=== PATIENT | female | born 1995 | race Two or more races ===

== ENCOUNTER 2017-07-06 21:34 | Emergency (ER) | payer MEDICAID, OTHER ==
[~2017-07-06] VITALS: Ht 170.2 cm; Wt 74.4 kg
[~2017-07-06 21:34] MED LIST: AZITHROMYCIN250 MG PO; IBUPROFEN600 MG PO; PREDNISONE20 MG PO
[2017-07-06 22:23] LABS: APPEARANCE,URINE CLEAR; BILIRUBIN, URINE NEGATIVE (NEGATIVE); GLUCOSE, URINE (UA) NEGATIVE (NEGATIVE); KETONES,URINE 1+ (NEGATIVE); LEUKOCYTE ESTERASE ,URINE 3+ (NEGATIVE); NITRITE,URINE NEGATIVE (NEGATIVE); PH,URINE 5 (4.5-8.0); PROTEIN,URINE NEGATIVE (NEGATIVE); UROBILINOGEN,URINE 1 MG/DL (0.0-1.0)
[2017-07-06 22:24] LABS: COLOR,URINE YELLOW
[2017-07-06] MEDS ORDERED: NITROFURANTOIN100 M2 ORAL (22:44)
--- NOTE | 2017-07-06 22:52 | Emergency Room Report ---
History of Present Illness General Chief Complaint: Abdominal Pain Source: Patient Present Illness HPI 22YOF with episode of vaginal bleeding 3 days ago after "rough sex." No additional episodes since. Currently DENIES abd/pelvic pain, contrary to preschool teacher's assistant note No nausea/vomiting/diarrhea, fever/chills Feels well otherwise also endorsing dysuria, polyuria for 2-3 days without flank pain Sexual relations with one partner. No history of STDs. Allergies: Coded Allergies: PENICILLINS (Verified Allergy, Intermediate, PT GETS HIVES ALL OVER BODY, MOTHER IS ALSO ALLERGIC, 06/06/11) Patient History Past Medical History: none Past Surgical History: none Pertinent Family History: none Social History: Denies: smoking, alcohol use, drug use Last Menstrual Period: last month Now: No : 1 Immunizations: UTD Reviewed Nursing Documentation: PMH: Agreed, PSxH: Agreed Nursing Documentation-PMH Past Medical History: No Stated History Review of Systems All Other Systems: negative except mentioned in HPI Physical Exam Vital Signs Date Time Temp Pulse Resp B/P (MAP) Pulse Ox O2 Delivery O2 Flow Rate FiO2 07/06/17 21:46 98.8 94 18 126/82 100 Room Air Medical Decision Making Diagnostic Impression: Primary Impression: Dysuria Additional Impression: Vaginal bleeding ER Course VSS. Afebrile Vaginal bleeding after intercourse likely d/t rough sex. Since resolved UA infected Rx Macrobid provided DC home Last Vital Signs Date Time Temp Pulse Resp B/P (MAP) Pulse Ox O2 Delivery O2 Flow Rate FiO2 07/06/17 21:46 98.8 94 18 126/82 100 Room Air Status: improved Disposition: HOME, SELF-CARE Condition: Improved Scripts Nitrofurantoin Monohyd/M-Cryst* (MACROBID 100 MG*) 100 Mg Capsule 100 MG ORAL EVERY 12 HOURS for 7 Days, #14 CAP Prov: EVELIA SUAREZ M.D. 07/06/17 Patient Instructions: Dysuria EVELIA SUAREZ M.D. Jul 06, 2017 22:52
[2017-07-06 23:06] VITALS: BP 126/82
== END 2017-07-06 23:07 | disposition home or self-care (01) ==
LOC: EMR 21:54
DX: R30.0 Dysuria (principal); N93.9 Abnormal uterine and vaginal bleeding, unspecified; Z88.0 Allergy status to penicillin
CPT/HCPCS: 81003; 81025; 87086; 99283

== ENCOUNTER 2019-06-11 21:52 | Emergency (ER) | payer OTHER ==
[~2019-06-11] VITALS: Ht 170.2 cm; Wt 86.2 kg
[~2019-06-11 21:52] MED LIST changes: +NITROFURANTOIN100 M2 ORAL
--- NOTE | 2019-06-11 22:22 | NUR ---
ED Nurse Note: Patient accompanied by mother. Sustained burn to the inner right thigh three days ago - using hot water. Today noted a redness developing at the burn site. No blister wound appears as if the blister has burst. Wound looks dry.
[2019-06-11] MEDS ORDERED: SILVADENE20 GM TP (22:29)
[2019-06-11] MEDS ORDERED: HYDROCODON-ACE1 EA15 ORAL (22:29)
[2019-06-11] MEDS ORDERED: IBUPROFEN600 MG ORAL (22:29)
--- NOTE | 2019-06-11 22:29 | Emergency Room Report ---
History of Present Illness General Chief Complaint: Burn/Smoke Inhalation Source: Patient Present Illness HPI Is a 24-year-old female with no past medical history. She presents with chief complaint of burn to the right thigh. She said that she dropped some hot water on it 4 days ago. It blister up and now the blister broke. Still very painful. No fever chills but no nausea no vomiting. Denies any abuse. Pain is 8 out of 10. Worse with exposure to air. Allergies: Coded Allergies: PENICILLINS (Verified Allergy, Intermediate, PT GETS HIVES ALL OVER BODY, MOTHER IS ALSO ALLERGIC, 06/06/11) Patient History Past Medical History: see triage record, old chart reviewed Past Surgical History: none Pertinent Family History: none Social History: Denies: smoking Last Menstrual Period: 06/02/19 Now: No : 2 Para: 2 Immunizations: other Reviewed Nursing Documentation: PMH: Agreed; PSxH: Agreed Nursing Documentation-PMH Past Medical History: No Stated History Review of Systems Eye: Denies: eye pain, blurred vision ENT: Denies: ear pain, nose congestion, throat swelling Respiratory: Denies: cough, shortness of breath Cardiovascular: Denies: chest pain, palpitations Gastrointestinal: Denies: abdominal pain, diarrhea, nausea, vomiting Musculoskeletal: Denies: back pain, joint pain Skin: Denies: rash Neurological: Denies: headache, numbness Endocrine: Denies: increased thirst, increased urine Hematologic/Lymphatic: Denies: easy bruising All Other Systems: negative except mentioned in HPI Physical Exam Vital Signs Date Time Temp Pulse Resp B/P (MAP) Pulse Ox O2 Delivery O2 Flow Rate FiO2 06/11/19 22:07 98.2 102 17 97 Room Air Vitals normal Sp02 EP Interpretation: reviewed, normal General Appearance: well appearing, no apparent distress, alert Head: normocephalic, atraumatic Eyes: bilateral eye PERRL, bilateral eye EOMI ENT: hearing grossly normal, normal pharynx Neck: full range of motion, supple, no meningismus Respiratory: chest non-tender, lungs clear, normal breath sounds Cardiovascular #1: regular rate, rhythm, no murmur Gastrointestinal: normal bowel sounds, non tender, no mass, no organomegaly, no bruit, non-distended Musculoskeletal: back normal, gait/station normal, normal range of motion, other - Right upper inner thigh: She has a linear 2 x 6 cm burn with partial to full-thickness burn. She has some surrounding 4 to 5 cm erythema. Psychiatric: mood/affect normal Medical Decision Making Diagnostic Impression: Primary Impression: Second degree burn of thigh Qualified Codes: T24.211A - Burn of second degree of right thigh, initial encounter ER Course She with a second-degree burn to her thigh. She claimed that this is from hot water from a cup. To me it looks more like a burn from her curling iron. No evidence of any infection. Burn dressing done. Will discharge home. Last Vital Signs Date Time Temp Pulse Resp B/P (MAP) Pulse Ox O2 Delivery O2 Flow Rate FiO2 06/11/19 22:07 98.2 102 17 97 Room Air Status: improved Disposition: HOME, SELF-CARE Condition: Stable Scripts Silver Sulfadiazine (SILVADENE) 20 Gm Cream..g. 20 GM TP BID, #50 GM Prov: Sushil Campbell MD 06/11/19 Ibuprofen* (MOTRIN*) 600 Mg Tablet 600 MG ORAL THREE TIMES A DAY, #30 TAB 0 Refills Prov: Sushil Campbell MD 06/11/19 Hydrocodone/Acetaminophen 5-325* (HYDROCODONE/ACETAMINOPHEN 5-325*) 1 Each Tablet 1 TAB ORAL Q6H PRN for For Pain, #15 TAB 0 Refills Prov: Sushil Campbell MD 06/11/19 Referrals: NON PHYSICIAN (PCP) Patient Instructions: Second-Degree Burn Additional Instructions: Wound clean. Change dressing twice a day. Follow-up with in 7 days for recheck. Return if worse. Sushil Campbell MD Jun 11, 2019 22:29
[2019-06-11] MEDS ORDERED: HYDROcodone/Acetamin 5/325 tab ORAL ONE (22:30)
--- NOTE | 2019-06-11 22:35 | NUR ---
ED Nurse Note: Wound dressed with ointment as prescribed and covered with dressing. Wound dressing performed by EMT. Wound care advice provided.
--- NOTE | 2019-06-11 22:43 | NUR ---
ER DISCHARGE NOTE: Patient is cleared to be discharged per ERMD, pt is aox4, on room air, with stable vital signs. pt was given dc and prescription instructions, pt was able to verbalize understanding, pt id band removed without complications. pt is able to ambulate with steady gait. pt took all belongings. Patient accompanied home by mother.
[2019-06-11 22:47] VITALS: BP 127/74
[2019-06-11 22:50] VITALS: BP 127/74
== END 2019-06-11 22:54 | disposition home or self-care (01) ==
LOC: EMR 22:17
DX: T24.211A Burn of second degree of right thigh, initial encounter (principal); T31.0 Burns involving less than 10% of body surface; Z88.0 Allergy status to penicillin; X11.8XXA Contact with other hot tap-water, initial encounter; Y92.9 Unspecified place or not applicable
CPT/HCPCS: 99282

== ENCOUNTER 2019-10-04 19:30 | Emergency (ER) | payer OTHER ==
[~2019-10-04] VITALS: Ht 170.2 cm; Wt 90.7 kg
[~2019-10-04 19:30] MED LIST changes: +HYDROCODON-ACE1 EA15 ORAL; +IBUPROFEN600 MG ORAL; +SILVADENE20 GM TP
[2019-10-04 19:45] VITALS: BP 128/76
[2019-10-04] MEDS ORDERED: DOXYCYCLINE MO100 MG ORAL (19:52)
--- NOTE | 2019-10-04 19:54 | Emergency Room Report ---
History of Present Illness General Chief Complaint: Abdominal Pain Source: Patient Present Illness HPI Is a 24-year-old female presents after recent STD exposure. Patient states that her had recently been diagnosed with a sexually transmitted infection. She reports having some increased pelvic pain. Denies any fever. Had not been vomiting. Is unsure if she is . Allergies: Coded Allergies: PENICILLINS (Verified Allergy, Intermediate, PT GETS HIVES ALL OVER BODY, MOTHER IS ALSO ALLERGIC, 06/06/11) Patient History Last Menstrual Period: na Now: No : 2 Para: 2 Reviewed Nursing Documentation: PMH: Agreed; PSxH: Agreed Nursing Documentation-PMH Past Medical History: No Stated History Hx Cardiac Problems: No Hx Hypertension: No Hx Asthma: No Hx COPD: No Hx Diabetes: No Hx Cancer: No Hx Gastrointestinal Problems: No Hx Dialysis: No History Of Psychiatric Problem: No Hx Neurological Problems: No Hx Cerebrovascular Accident: No Hx Seizures: No Review of Systems All Other Systems: negative except mentioned in HPI Physical Exam Vital Signs Date Time Temp Pulse Resp B/P (MAP) Pulse Ox O2 Delivery O2 Flow Rate FiO2 10/04/19 19:36 97.7 106 17 128/76 (93) 96 Room Air Sp02 EP Interpretation: reviewed, normal General Appearance: normal inspection, well appearing, no apparent distress, alert, GCS 15 Head: atraumatic ENT: normal ENT inspection, hearing grossly normal, normal voice Neck: normal inspection, full range of motion, supple, no bony tend Respiratory: normal inspection, lungs clear, normal breath sounds, no respiratory distress, no retraction, no wheezing Cardiovascular #1: regular rate, rhythm, no edema Gastrointestinal: normal inspection, normal bowel sounds, non tender, soft, no guarding, no hernia Genitourinary: no CVA tenderness Musculoskeletal: normal inspection, back normal, normal range of motion Neurologic: alert, motor strength/tone normal, case management social worker III-XII nml as tested, oriented x3, responsive, speech normal, normal inspection Psychiatric: normal inspection, judgement/insight normal, mood/affect normal Medical Decision Making Diagnostic Impression: Primary Impression: Sexually transmitted disease ER Course Patient present for pelvic pain. Differential diagnosis include was not limited to ectopic , sexually transmit infection, ovarian cyst rupture among others. Patient has a benign exam and does not appear to require any imaging or laboratory testing at this time. Patient be empirically treated with azithromycin. She was advised to follow-up with her primary care physician for further testing as well as further imaging. test was ordered. test was negative. The patient is advised to follow up with primary care doctor in 1-2 days. Patient is advised to return if any worsening condition or if any changes in status that are concerning. This report is dictated with [employer] local [employer] flatbed truck driver software which may occasionally lead to discrepancies related to use of this software. Labs Test 10/04/19 19:41 Urine Color Pale yellow Urine Appearance Slightly cloudy Urine pH 6 (4.5-8.0) Urine Specific [place] 1.025 (1.005-1.035) Urine Protein Negative (NEGATIVE) Urine Glucose (UA) Negative (NEGATIVE) Urine Ketones Negative (NEGATIVE) Urine Blood 2+ (NEGATIVE) Urine Nitrite Negative (NEGATIVE) Urine Bilirubin Negative (NEGATIVE) Urine Urobilinogen Normal MG/DL (0.0-1.0) Urine Leukocyte Esterase 3+ (NEGATIVE) Urine RBC 2-4 /HPF (0 - 2) Urine WBC 5-10 /HPF (0 - 2) Urine Squamous Epithelial Cells Many /LPF (NONE/OCC) Urine Bacteria Moderate /HPF (NONE) Urine HCG, Qualitative Negative (NEGATIVE) Last Vital Signs Date Time Temp Pulse Resp B/P (MAP) Pulse Ox O2 Delivery O2 Flow Rate FiO2 10/04/19 19:36 97.7 106 17 128/76 (93) 96 Room Air Status: improved Disposition: HOME, SELF-CARE Condition: Stable Scripts Doxycycline Monohydrate* (DOXYCYCLINE MONOHYDRATE*) 100 Mg Capsule 100 MG ORAL Q12H, #14 CAP 0 Refills Prov: Ambrosio Johnson MD 10/04/19 Patient Instructions: Abdominal Pain, Adult Ambrosio Johnson MD Oct 04, 2019 19:54
[2019-10-04] MEDS ORDERED: Azithromycin 250mg tab ORAL ONE (20:00)
[2019-10-04 20:14] LABS: APPEARANCE,URINE SLIGHTLY CLOUDY; BILIRUBIN, URINE NEGATIVE (NEGATIVE); COLOR,URINE PALE YELLOW; GLUCOSE, URINE (UA) NEGATIVE (NEGATIVE); KETONES,URINE NEGATIVE (NEGATIVE); LEUKOCYTE ESTERASE ,URINE 3+ (NEGATIVE); NITRITE,URINE NEGATIVE (NEGATIVE); PH,URINE 6 (4.5-8.0); PROTEIN,URINE NEGATIVE (NEGATIVE); UROBILINOGEN,URINE NORMAL MG/DL (0.0-1.0)
[2019-10-04 20:35] VITALS: BP 128/76
== END 2019-10-04 20:35 | disposition home or self-care (01) ==
LOC: EMR 19:45
DX: A64 Unspecified sexually transmitted disease (principal); Z88.0 Allergy status to penicillin
CPT/HCPCS: 81003; 81025; 87086; Q0144; Z7502; 99283

== ENCOUNTER 2019-11-03 09:58 | Emergency (ER) | payer OTHER ==
[~2019-11-03] VITALS: Ht 170.2 cm; Wt 90.7 kg
[~2019-11-03 09:58] MED LIST changes: +DOXYCYCLINE MO100 MG ORAL
[2019-11-03 10:02] VITALS: BP 109/67
--- NOTE | 2019-11-03 10:10 | NUR ---
ED Nurse Note: patient walked into ED from home, patient reports she visited PMD 2 weeks ago and her urine tested positive, however her menstrual cycle is irregular and the last cycle was 2 months ago. patient reports she started having lower abdominal cramping last night and saw blood tinged discharge last night. patient is alert awake x4 ambulatory, breathing unlabored and even. patient reports awaiting to see OBGYN soon. reports 2 2 para.
--- NOTE | 2019-11-03 10:19 | Emergency Room Report ---
History of Present Illness General Chief Complaint: Female Urogenital Problems Source: Patient, Medical Record Present Illness HPI Disclaimer: Please note that this report is being documented using [employer] technology. This can lead to erroneous entry secondary to incorrect interpretation by the dictating instrument. HPI: 24-year-old G3, P2 female unknown stage of presents for evaluation of vaginal bleeding and cramping. Patient was at her PMD office 2 weeks ago and had a urine test that was positive. Blood levels have not yet been checked and no other DIRECTOR OF CUSTOMER ACQUISITION follow-ups have been performed since then. LMP was 2 months ago but she typically has an irregular cycle so this is not unusual for her. Last night, she noted some lower abdominal cramping and some mild vaginal bleeding while wiping after using the bathroom. Denied vaginal discharge, dysuria. Denies fever, chills, nausea, vomiting, diarrhea or other changes in her health. PMH: Denies PSH: Reviewed Allergies: Penicillin Social Hx: Denies Allergies: Coded Allergies: PENICILLINS (Verified Allergy, Intermediate, PT GETS HIVES ALL OVER BODY, MOTHER IS ALSO ALLERGIC, 06/06/11) Patient History Last Menstrual Period: 08/2019 Now: Yes - 2 weeks : 2 Para: 2 Nursing Documentation-PMH Hx Cardiac Problems: No Hx Hypertension: No Hx Asthma: No Hx COPD: No Hx Diabetes: No Hx Cancer: No Hx Gastrointestinal Problems: No Hx Dialysis: No Hx Neurological Problems: No Hx Cerebrovascular Accident: No Hx Seizures: No Review of Systems All Other Systems: negative except mentioned in HPI Physical Exam Vital Signs Date Time Temp Pulse Resp B/P (MAP) Pulse Ox O2 Delivery O2 Flow Rate FiO2 11/03/19 10:02 98.4 79 18 109/67 99 Room Air General: Awake and alert, no acute distress HEENT: NC/AT. EOMI. Cardiovascular: RRR. S1 and S2 normal. No murmur appreciated Resp: Normal work of breathing. No cough, wheezing or crackles appreciated Abdomen: Abdomen is soft, nondistended. Nontender Skin: Intact. No abrasions, laceration or rash over the exposed skin MSK: Normal tone and bulk. Moving all extremities. No obvious deformity. Neuro: Awake and alert. Mentating appropriately. Medical Decision Making Diagnostic Impression: Primary Impression: Additional Impression: Pelvic pain ER Course 24-year-old female, G3, P2, unknown gestational age presents for evaluation of vaginal bleeding and abdominal cramping. Differential includes was not limited to threatened , ectopic , placenta previa, UTI, pyelonephritis , cervicitis. She was treated in the emergency department 1 month ago for STI exposure and UTI. She reported no symptoms after treatment. Will obtain labs including type and screen and hCG level as well as ultrasound. Laboratory Tests Test 11/03/19 10:10 White Blood Count 5.0 K/UL (4.8-10.8) Red Blood Count 4.42 M/UL (4.20-5.40) Hemoglobin 12.6 G/DL (12.0-16.0) Hematocrit 38.6 % (37.0-47.0) Mean Corpuscular Volume 87 FL (80-99) Mean Corpuscular Hemoglobin 28.6 PG (27.0-31.0) Mean Corpuscular Hemoglobin Concent 32.8 G/DL (32.0-36.0) Red Cell Distribution Width 12.4 % (11.6-14.8) Platelet Count 246 K/UL (150-450) Mean Platelet Volume 8.0 FL (6.5-10.1) Neutrophils (%) (Auto) 57.4 % (45.0-75.0) Lymphocytes (%) (Auto) 31.2 % (20.0-45.0) Monocytes (%) (Auto) 9.8 % (1.0-10.0) Eosinophils (%) (Auto) 0.7 % (0.0-3.0) Basophils (%) (Auto) 0.9 % (0.0-2.0) Urine Color Pale yellow Urine Appearance Clear Urine pH 8 (4.5-8.0) Urine Specific [place] 1.010 (1.005-1.035) Urine Protein Negative (NEGATIVE) Urine Glucose (UA) Negative (NEGATIVE) Urine Ketones Negative (NEGATIVE) Urine Blood 2+ (NEGATIVE) H Urine Nitrite Negative (NEGATIVE) Urine Bilirubin Negative (NEGATIVE) Urine Urobilinogen Normal MG/DL (0.0-1.0) Urine Leukocyte Esterase 1+ (NEGATIVE) H Urine RBC 2-4 /HPF (0 - 2) H Urine WBC 2-4 /HPF (0 - 2) Urine Squamous Epithelial Cells Few /LPF (NONE/OCC) Urine Bacteria Occasional /HPF (NONE) Sodium Level 141 MMOL/L (136-145) Potassium Level 3.7 MMOL/L (3.5-5.1) Chloride Level 106 MMOL/L (98-107) Carbon Dioxide Level 22 MMOL/L (21-32) Anion Gap 13 mmol/L (5-15) Blood Urea Nitrogen 6 mg/dL (7-18) L Creatinine 0.6 MG/DL (0.55-1.30) Estimate Glomerular Filtration Rate > 60 mL/min (>60) Glucose Level 89 MG/DL (74-106) Calcium Level 8.9 MG/DL (8.5-10.1) Human Chorionic Gonadotropin, Quant 25828 mIU/mL (1-6) H CT/MRI/US Diagnostic Results CT/MRI/US Diagnostic Results : Impression Final Report EXAM: US First Trimester, Transabdominal US , Transvaginal CLINICAL HISTORY: ABD PAIN TECHNIQUE: Real-time transabdominal and transvaginal obstetrical ultrasound of the maternal pelvis and a first trimester with image documentation. Transvaginal imaging was used for better evaluation of the fetus and adnexa. COMPARISON: No relevant prior studies available. FINDINGS: Gestation: Intrauterine gestational sac with probable yolk sac. No pole yet identified. Placenta/amniotic fluid: Cannot be adequately evaluated due to the early gestational age. Uterus/cervix: Uterus measures 9.7 x 5.4 x 8.5 cm. Ovaries: Unremarkable. No lesions or torsion. Free fluid: Small amount of fluid in the pelvis. IMPRESSION: Intrauterine gestational sac with probable yolk sac. No pole yet identified. Follow-up to confirm IUP and viability. Radiologist: Fatoumata Sheth M.D. Electronically Signed: 11/03/19 11:25 Study ready at 11:21 and initial results transmitted at 11:25 Reevaluation Time: 11:39 Last Vital Signs Date Time Temp Pulse Resp B/P (MAP) Pulse Ox O2 Delivery O2 Flow Rate FiO2 11/03/19 10:02 98.4 79 18 109/67 (81) 99 Room Air Reevaluation Impression Ultrasound shows a intrauterine gestational sac no evidence of ectopic . They cannot fully visualize the pole. Labs show elevated hCG consistent with . May be a threatened or may be too early in gestation to fully evaluate using ultrasound. Patient will require repeat imaging by her DIRECTOR OF CUSTOMER ACQUISITION this week. Will start vitamins and start on Keflex for possible early urinary tract infection. She does not require RhoGam as she is a positive. She is well-appearing otherwise has no other complaints. Can follow-up with DIRECTOR OF CUSTOMER ACQUISITION and return with any new or worsening symptoms. She understands and agrees with the treatment plan. Disposition: HOME, SELF-CARE Condition: Stable Scripts Cephalexin* (KEFLEX*) 500 Mg Capsule 500 MG ORAL EVERY 12 HOURS for 7 Days, #14 CAP 0 Refills Prov: Alberto Rocha MD 11/03/19 Ald172/Iron Fumarate/Fa/Dss ( 19 TABLET) 1 Each Tablet 1 EACH PO DAILY, #30 TAB Prov: Alberto Rocha MD 11/03/19 Alberto Rocha MD Nov 03, 2019 10:18
[2019-11-03 10:34] LABS: APPEARANCE,URINE CLEAR; BILIRUBIN, URINE NEGATIVE (NEGATIVE); COLOR,URINE PALE YELLOW; GLUCOSE, URINE (UA) NEGATIVE (NEGATIVE); KETONES,URINE NEGATIVE (NEGATIVE); LEUKOCYTE ESTERASE ,URINE 1+ (NEGATIVE); NITRITE,URINE NEGATIVE (NEGATIVE); PH,URINE 8 (4.5-8.0); PROTEIN,URINE NEGATIVE (NEGATIVE); UROBILINOGEN,URINE NORMAL MG/DL (0.0-1.0)
[2019-11-03 10:35] LABS: BASOPHILS % (AUTO) 0.9 % (0.0-2.0); EOSINOPHILS % (AUTO) 0.7 % (0.0-3.0); HEMATOCRIT 38.6 % (37.0-47.0); HEMOGLOBIN 12.6 G/DL (12.0-16.0); LYMPHOCYTES % (AUTO) 31.2 % (20.0-45.0); MEAN CORPUSCULAR VOLUME 87 FL (80-99); MONOCYTES % (AUTO) 9.8 % (1.0-10.0); NEUTROPHILS % (AUTO) 57.4 % (45.0-75.0); PLATELET COUNT 246 K/UL (150-450); RED BLOOD COUNT 4.42 M/UL (4.20-5.40); RED CELL DISTRIBUTION WIDTH 12.4 % (11.6-14.8)
--- NOTE | 2019-11-03 10:39 | NUR ---
ED Nurse Note: US at bedside
[2019-11-03 10:45] LABS: ANION GAP 13 mmol/L (5-15); BLOOD UREA NITROGEN 6 mg/dL (7-18); CALCIUM 8.9 MG/DL (8.5-10.1); CARBON DIOXIDE 22 MMOL/L (21-32); CHLORIDE 106 MMOL/L (98-107); CREATININE 0.6 MG/DL (0.55-1.30); POTASSIUM 3.7 MMOL/L (3.5-5.1); SODIUM 141 MMOL/L (136-145)
--- NOTE | 2019-11-03 11:27 | Diagnostic Imaging Report ---
EXAM: US First Trimester, Transabdominal US , Transvaginal CLINICAL HISTORY: ABD PAIN TECHNIQUE: Real-time transabdominal and transvaginal obstetrical ultrasound of the maternal pelvis and a first trimester with image documentation. Transvaginal imaging was used for better evaluation of the fetus and adnexa. COMPARISON: No relevant prior studies available. FINDINGS: Gestation: Intrauterine gestational sac with probable yolk sac. No pole yet identified. Placenta/amniotic fluid: Cannot be adequately evaluated due to the early gestational age. Uterus/cervix: Uterus measures 9.7 x 5.4 x 8.5 cm. Ovaries: Unremarkable. No lesions or torsion. Free fluid: Small amount of fluid in the pelvis. IMPRESSION: Intrauterine gestational sac with probable yolk sac. No pole yet identified. Follow-up to confirm IUP and viability.
[2019-11-03 11:30] VITALS: BP 115/65
[2019-11-03] MEDS ORDERED: CEPHALEXIN500 MG ORAL (11:47)
[2019-11-03] MEDS ORDERED: PRENATAL 19 TA1 EAC1 PO (11:47)
[2019-11-03 11:56] VITALS: BP 115/65
--- NOTE | 2019-11-03 11:56 | NUR ---
ER DISCHARGE NOTE: Patient is cleared to be discharged per ERMD DR BLAKE, pt is aox4, on room air, with stable vital signs. pt was given dc and prescription instructions, pt was able to verbalize understanding, pt id band and iv site removed without complications. pt is able to ambulate with steady gait. pt took all belongings.
== END 2019-11-03 12:00 | disposition home or self-care (01) ==
LOC: EMR 10:28
DX: O46.90 Antepartum hemorrhage, unspecified, unspecified trimester (principal); Z3A.00 Weeks of gestation of pregnancy not specified; Z88.0 Allergy status to penicillin
CPT/HCPCS: 36415; 76801; 76817; 80048; 81003; 84702; 85025; 86850; 86900; 86901; Z7502; 99284